=== PATIENT | male | born 1980 | race Caucasian/White ===

== ENCOUNTER 2018-02-26 09:30 | Inpatient (IN) | payer OTHER ==
[~2018-02-26] VITALS: Ht 175.3 cm; Wt 84.8 kg
[2018-03-14] MEDS ORDERED: OXYC1TAB9 PO (17:52)
[2018-03-14] MEDS ORDERED: Intestinex CAP PO (17:52)
[2018-03-14] MEDS ORDERED: CIPRO500 MG PO (17:52)
[2018-03-14] MEDS ORDERED: FLAGYL500MG PO (17:53)
== END 2018-03-14 18:57 | disposition home or self-care (01) | DRG 331 ==
LOC: SURH 03-11 07:00 → SURG 03-11 08:22 → O/R 03-11 08:22 → SURH 03-11 09:30 → SURG 03-11 18:54
PROVIDERS: Surgery
PROC: 0DJD8ZZ Inspection of Lower Intestinal Tract, Via Natural or Artificial Opening Endoscopic (ICD-10-PCS; 2018-03-11)
PROC: 0DTG4ZZ Resection of Left Large Intestine, Percutaneous Endoscopic Approach (ICD-10-PCS; principal; 2018-03-11 07:00)
DX: K57.32 Diverticulitis of large intestine without perforation or abscess without bleeding (principal)